=== PATIENT | male | born 1965 | race Caucasian/White ===

== ENCOUNTER 2020-05-24 15:42 | Outpatient (CLI) | payer OTHER, SELFPAY ==
--- NOTE | 2020-05-24 | XR_ITS ---
WS: [id number] EXAM: RIGHT ELBOW: 3 VIEWS DATE OF EXAMINATION: 05/24/2020, 1607 hours COMPARISON: None. HISTORY: Patient is 54 years old with chronic elbow pain for years. FINDINGS: Bone density is normal in appearance. There are slight changes of arthritis within the elbow joint. N o fracture, lytic or blastic process is seen. No joint effusion. Extra-articular soft tissues are unr emarkable. 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 No acute bony abnormality.
--- NOTE | 2020-05-24 | XR_ITS ---
WS: [id number] EXAM: RIGHT SHOULDER: 2 VIEWS DATE OF EXAMINATION: 05/24/2020, 1606 hours COMPARISON: None. HISTORY: 54 years old with chronic right shoulder pain for years. FINDINGS: Bone density is normal in appearance. There are findings of slight irregularity off the posterior gle noid suggesting arthritis in the glenohumeral. Arthritis in the AC joint as well. Slight cyst formati on is seen in the posterior greater tuberosity suggesting rotator cuff insertional degenerative qiu es. No fracture or dislocation. No soft tissue abnormality is demonstrated. XR/XR shoulder RT min 2V* [id number] IMPRESSION: Degenerative changes as described. No acute bony abnormality.
== END 2020-05-24 15:43 | disposition home or self-care (01) ==
LOC: RAD 15:46
PROVIDERS: PCP Family Medicine; Visit Provider Family Medicine
DX: M25.511 Pain in right shoulder (principal); M25.521 Pain in right elbow
CPT/HCPCS: 73030; 73080

== ENCOUNTER → 2022-03-30 13:37 | Outpatient (BNVA) | payer OTHER, SELFPAY | PROVIDERS: PCP Family Medicine; Visit Provider Family Medicine | DX: Z00.00 Encounter for general adult medical examination without abnormal findings (principal); Z51.81 Encounter for therapeutic drug level monitoring; Z13.1 Encounter for screening for diabetes mellitus; E11.9 Type 2 diabetes mellitus without complications; Z12.5 Encounter for screening for malignant neoplasm of prostate | CPT/HCPCS: 80053; 80061; 83036; 84153; 85025 ==

== ENCOUNTER → 2022-04-27 17:07 | Outpatient (BNVA) | payer OTHER, SELFPAY | PROVIDERS: PCP Family Medicine; Visit Provider Emergency Medicine | DX: Z20.822 Contact with and (suspected) exposure to COVID-19 (principal); J02.9 Acute pharyngitis, unspecified; U07.1 COVID-19 | CPT/HCPCS: 87426; 87880 ==

== ENCOUNTER → 2023-06-18 13:09 | Outpatient (BNVA) | payer OTHER, SELFPAY | PROVIDERS: PCP Family Medicine; Visit Provider Family Medicine | DX: Z51.81 Encounter for therapeutic drug level monitoring (principal); Z13.220 Encounter for screening for lipoid disorders; Z12.5 Encounter for screening for malignant neoplasm of prostate; I10 Essential (primary) hypertension | CPT/HCPCS: 80053; 80061; 81000; 84153; 85025 ==

== ENCOUNTER → 2025-07-14 14:36 | Outpatient (BNVA) | payer BC, SELFPAY | PROVIDERS: PCP Family Medicine; Visit Provider Family Medicine | DX: Z00.00 Encounter for general adult medical examination without abnormal findings (principal); Z12.5 Encounter for screening for malignant neoplasm of prostate; Z13.6 Encounter for screening for cardiovascular disorders; Z13.1 Encounter for screening for diabetes mellitus; Z51.81 Encounter for therapeutic drug level monitoring; E55.9 Vitamin D deficiency, unspecified | CPT/HCPCS: 80053; 80061; 82306; 83036; 84153; 85025 ==